=== PATIENT | male | born 1935 | race Caucasian/White ===

== ENCOUNTER 2022-03-30 08:24 | Day surgery (SDC) | payer MEDICARE, BC ==
[2022-03-28 15:51] VITALS: BMI 20.9
[2022-03-30] MEDS ORDERED: Gentamicin 80 MG/2 ML VIAL ONE (08:41)
[2022-03-30] MEDS ORDERED: Lidocaine 1% (PF) 30 ML VIAL ONE (08:41)
[2022-03-30] MEDS ORDERED: CEFAZOLIN 1 GM VIAL ONE (08:41)
[2022-03-30] MEDS ORDERED: Vancomycin (BATCH) 1.5 GRAM/300 ML BAG ONE (08:50)
[2022-03-30] MEDS ORDERED: SUGAMMADEX SODIUM 200 MG/2 ML VIAL ONE (08:58)
[2022-03-30] MEDS ORDERED: Fentanyl 250 MCG/5 ML VIAL ONE (09:45)
[2022-03-30] MEDS ORDERED: Dexmedetomidine 200 MCG/2 ML VIAL ONE (09:45)
[2022-03-30] MEDS ORDERED: Glycopyrrolate 0.2 MG/ML 5 ML SYRINGE ONE (10:08)
[2022-03-30] MEDS ORDERED: Promethazine HCl 25 MG/ML VIAL IM PRN (11:39)
[2022-03-30] MEDS ORDERED: Ondansetron HCl/PF 4 MG/2 ML Vial IVP PRN (11:39)
[2022-03-30] MEDS ORDERED: Promethazine HCl 25 MG/ML VIAL IVPB PRN (11:39)
[2022-03-30] MEDS ORDERED: Iopamidol 370 76% 50 ML VIAL FS ONE (12:52)
[2022-03-30] MEDS ORDERED: Acetaminophen 500 MG TAB ONE (13:33)
== END 2022-03-30 15:52 | disposition home or self-care (01) ==
LOC: SDC 08:24
PROVIDERS: ATTEND Internal Medicine Cardiovascular Disease
PROC: 0JH609Z Insertion of Cardiac Resynchronization Defibrillator Pulse Generator into Chest Subcutaneous Tissue and Fascia, Open Approach (ICD-10-PCS; principal; 2022-03-30)
PROC: 02HL3KZ Insertion of Defibrillator Lead into Left Ventricle, Percutaneous Approach (ICD-10-PCS; 2022-03-30)
PROC: 02H63KZ Insertion of Defibrillator Lead into Right Atrium, Percutaneous Approach (ICD-10-PCS; 2022-03-30)
PROC: 02HK3KZ Insertion of Defibrillator Lead into Right Ventricle, Percutaneous Approach (ICD-10-PCS; 2022-03-30)
PROC: 3E0102A Introduction of Anti-Infective Envelope into Subcutaneous Tissue, Open Approach (ICD-10-PCS; 2022-03-30)
DX: I11.0 Hypertensive heart disease with heart failure (principal); I50.22 Chronic systolic (congestive) heart failure; I42.8 Other cardiomyopathies; I44.7 Left bundle-branch block, unspecified; I49.5 Sick sinus syndrome; R00.1 Bradycardia, unspecified; E78.5 Hyperlipidemia, unspecified; I73.9 Peripheral vascular disease, unspecified; G62.9 Polyneuropathy, unspecified; N40.0 Benign prostatic hyperplasia without lower urinary tract symptoms; I35.0 Nonrheumatic aortic (valve) stenosis; Z87.891 Personal history of nicotine dependence; Z79.82 Long term (current) use of aspirin; Z79.890 Hormone replacement therapy; Z79.899 Other long term (current) drug therapy
CPT/HCPCS: 33225; 33249; 71045; 93005; C1769 ×2; C1894 ×2; J3370; 99156; 99157; C1777; C1882; C1898; C1900; J0690; J1580; J2001; J3010; Q9967